=== PATIENT | female | born 1980 | race Caucasian/White ===

== ENCOUNTER → 2020-07-31 | Outpatient (CLI) | payer OTHER ==
--- NOTE | 2020-07-31 11:00 | ECHOF ---
Referral Reason:R94.31 Abn EKG, R07.9 Chest pain, R06.02 Shortness MEASUREMENTS -------- HEIGHT: 175.3 cm WEIGHT: 55.8 kg BP: RVIDd: 1.8 cm (< 3.3) IVSd: 0.5 cm (0.6 - 1.1) LVIDd: 3.9 cm (3.9 - 5.3) LVPWd: 0.6 cm (0.6 - 1.1) IVSs: 0.9 cm LVIDs: 2.1 cm LVPWs: 1.2 cm LAESV Index (A-L): 22.77 ml/m Ao Diam: 2.9 cm (2.0 - 3.7) AV Cusp: 1.6 cm (1.5 - 2.6) LA Diam: 2.0 cm (2.7 - 3.8) MV EXCURSION: 17.918 mm (> 18.000) MV EF SLOPE: 140 mm/s (70 - 150) EPSS: 1.5 cm MV E Adonis: 0.82 m/s MV DecT: 219 ms MV A Adonis: 0.58 m/s MV E/A Ratio: 1.41 RAP: 5.00 mmHg RVSP: 21.43 mmHg FINDINGS -------- This was a technically good study. The left ventricular size is normal. Left ventricular wall thickness is normal. Overall left vent ricular systolic function is normal with, an EF between 55 - 60 %. The diastolic filling pattern is normal for the age of the patient 7.78. The right ventricle is normal in size. The left atrial size is normal. Normal LA size by volume 22+/-6 ml/m2. The right atrial size is normal. Aneurysmal Interatrial septum. The aortic valve is trileaflet and appears structurally normal. The mitral valve is normal. There is trace mitral regurgitation. The tricuspid valve appears structurally normal. Trace tricuspid regurgitation present. Right yenny tricular systolic pressure is normal at < 35 mmHg. There is no pulmonic regurgitation present. The aortic root size is normal. Normal inferior vena cava with normal inspiratory collapse consistent with estimated right atrial pre ssure of 5 mmHg. There is no pericardial effusion. CONCLUSIONS -------- 1. The left ventricular size is normal. 2. Left ventricular wall thickness is normal. 3. Overall left ventricular systolic function is normal with, an EF between 55 - 60 %. 4. The diastolic filling pattern is normal for the age of the patient 7.78 5. Aneurysmal Interatrial septum. 6. There is trace mitral regurgitation. 7. Trace tricuspid regurgitation present. 8. There is no pericardial effusion. DATA POWER CONSULTANT: Celestina Cr RDCS
--- NOTE | 2020-07-31 12:11 | ECHOS ---
STRESS ECHOCARDIOGRAM LUMASON: -- VIAL: INDICATION: Chest pain. MEDICATIONS: BASELINE HEART RATE: 68 BASELINE BLOOD PRESSURE: 116/66 MAXIMUM HEART RATE: 169 MAXIMUM BLOOD PRESSURE: 197/83 85% MPHR: 153 100% MPHR: 180 METS: 12 MAXIMUM STAGE REACHED: iV TOTAL EXERCISE TIME: 11 minutes CLINICAL INFORMATION: Baseline EKG shows sinus rhythm, normal axis, normal intervals. Patient exercised on Brandon protocol for a total of 11 minutes, achieving 12 METs, 93% of predicted maximal heart rate without chest pain. At peak exercise, there was [address]-segment depression in the inferolateral leads. Baseline echo shows normal left ventricular size, wall motion and systolic function. Postexercise, there is normal hyperdynamic response of all segments of myocardium noted. CONCLUSIONS: 1. Excellent exercise tolerance. 2. Abnormal stress test by EKG criteria. 3. Negative stress echo. BONI / TYREL: [id number] /
== END | disposition home or self-care (01) ==
LOC: RADNMMAIN 10:00
PROVIDERS: ATTEND Family Medicine
DX: Q21.1 Atrial septal defect (principal); I08.1 Rheumatic disorders of both mitral and tricuspid valves; R06.02 Shortness of breath; R00.2 Palpitations; R07.9 Chest pain, unspecified; R94.31 Abnormal electrocardiogram [ECG] [EKG]
CPT/HCPCS: 93225; 93226; 93306; 93351

== ENCOUNTER → 2020-08-02 | Outpatient (CLI) | payer OTHER ==
--- NOTE | 2020-08-02 15:23 | XR ---
EXAMINATION TYPE: XR chest 2V DATE OF EXAM: 08/02/2020 COMPARISON: 11/12/2011 INDICATION: Cough short of breath TECHNIQUE: Frontal and lateral views of the chest are obtained. FINDINGS: The heart size is normal. The pulmonary vasculature is normal. The lungs are clear. There is hyperinflation present. IMPRESSION: 1. Hyperinflation. 2. No acute pulmonary process. Recommendations: 1. Evaluate for low-dose CT screening for lung cancer
== END | disposition home or self-care (01) ==
LOC: RADXRMAIN 14:58
PROVIDERS: ATTEND Family Medicine
DX: R91.8 Other nonspecific abnormal finding of lung field (principal)
CPT/HCPCS: 71046